=== PATIENT | male | born 1975 | race Caucasian/White ===

== ENCOUNTER 2019-10-16 17:21 | Inpatient (IN) ==
[2019-10-16] MEDS ORDERED: Vancomycin 1,000 MG VIAL IVPB ONE (17:33)
[2019-10-16] MEDS ORDERED: Ampicillin/Sulbactam 3,000 MG in 0.9 % Sodium Chloride 100 ML IVPB ONE (17:33)
[2019-10-16] MEDS ORDERED: Vancomycin 2,000 MG/520 ML IV.SOLN IVPB ONE (18:00)
[2019-10-16 18:07] LABS: Basophils # 0.1 K/mcL (0.0-0.2); Hematocrit 41.5 % (37.5-50.1); Hemoglobin 13.5 g/dL (12.9-16.9); Mean Corpuscular HGB Conc 32.5 g/dL (31.6-35.5); Mean Corpuscular Hemoglobin 27.9 pg (28.0-33.3); Mean Corpuscular Volume 85.7 fL (83.0-100.0); Platelet Count 160 K/mcL (140-400); Red Blood Count 4.84 M/mcL (4.19-5.50); Red Cell Distribution Width 13.7 % (11.5-14.5); White Blood Count 4.8 K/mcL (4.3-11.1)
[2019-10-16] MEDS ORDERED: Ketorolac 30 MG/ML VIAL IVP ONE (18:11)
[2019-10-16 18:26] LABS: Monocytes # 1.1 K/mcL (0.0-1.3); Neutrophils # 2.7 K/mcL (1.6-8.9); Platelet Estimate Normal (Normal)
[2019-10-16 18:29] LABS: BUN/Creatinine Ratio 16 (6-26); Blood Urea Nitrogen 17 mg/dL (6-20); Calcium 9.1 mg/dL (8.6-10.3); Carbon Dioxide 25 mEq/L (23-29); Chloride 102 mEq/L (98-107); Glucose 93 mg/dL (70-105); Osmolality,Calculated 281 (280-300); Potassium 3.9 mEq/L (3.5-5.1); Sodium 135 mEq/L (136-145); eGFR For African Americans > 60 (> 60); eGFR For Non-African Americans > 60 (> 60)
[2019-10-17] MEDS: Ampicillin/Sulbactam 3,000 MG in 0.9 % Sodium Chloride Mini Bag 100 ML IVPB SCH ×5 (00:04→23:37)
[2019-10-17 04:25] LABS: Hematocrit 39.8 % (37.5-50.1); Hemoglobin 13.1 g/dL (12.9-16.9); Mean Corpuscular HGB Conc 32.9 g/dL (31.6-35.5); Mean Corpuscular Hemoglobin 28.4 pg (28.0-33.3); Mean Corpuscular Volume 86.3 fL (83.0-100.0); Platelet Count 123 K/mcL (140-400); Red Blood Count 4.61 M/mcL (4.19-5.50); Red Cell Distribution Width 13.5 % (11.5-14.5); White Blood Count 3.5 K/mcL (4.3-11.1)
[2019-10-17 04:43] LABS: BUN/Creatinine Ratio 18 (6-26); Blood Urea Nitrogen 18 mg/dL (6-20); Calcium 8.1 mg/dL (8.6-10.3); Carbon Dioxide 25 mEq/L (23-29); Chloride 105 mEq/L (98-107); Glucose 99 mg/dL (70-105); Osmolality,Calculated 288 (280-300); Potassium 3.6 mEq/L (3.5-5.1); Sodium 138 mEq/L (136-145); eGFR For African Americans > 60 (> 60); eGFR For Non-African Americans > 60 (> 60)
[2019-10-17 05:28] LABS: Basophils # 0.1 K/mcL (0.0-0.2); Eosinophils # 0.1 K/mcL (0.0-0.6); Lymphocytes # 0.8 K/mcL (0.6-4.6); Monocytes # 0.6 K/mcL (0.0-1.3); Platelet Estimate Normal (Normal); Reactive Lymphocytes Present (Not Present)
[2019-10-17] MEDS ORDERED: Acetaminophen 325 MG TABLET PO ONE (06:36)
[2019-10-17] MEDS ORDERED: Ketorolac 15 MG/ML VIAL IVP PRN (06:37)
[2019-10-17] MEDS: Vancomycin 1,250 MG/262.5 ML IV.SOLN IVPB SCH ×2 (07:32→19:40)
[2019-10-17] MEDS ORDERED: Ketorolac 30 MG/ML VIAL IVP ONE (16:52)
[2019-10-18] MEDS: Ampicillin/Sulbactam 3,000 MG in 0.9 % Sodium Chloride Mini Bag 100 ML IVPB SCH ×3 (05:22→21:45)
[2019-10-18] MEDS ORDERED: Ketorolac 30 MG/ML VIAL IVP PRN (10:42)
[2019-10-18] MEDS ORDERED: D5% in Water 250 ML ONE (18:20)
[2019-10-18] MEDS ORDERED: D5% in Water 1,000 ML IVC ONE (18:25)
[2019-10-18] MEDS ORDERED: D5% in 0.45% NACL 500 ML IVC SCH (18:30)
[2019-10-18] MEDS ORDERED: *HR* Propofol 200 MG/20 ML VIAL IVP ONE ×2 (21:37→23:19)
[2019-10-18] MEDS ORDERED: *HR* FentaNYL (PF) 100 MCG/2 ML VIAL ONE (21:37)
[2019-10-18] MEDS ORDERED: Lidocaine -MPF 2% 2 ML VIAL ONE (22:05)
[2019-10-18] MEDS ORDERED: Ondansetron 4 MG/2 ML VIAL ONE (22:05)
[2019-10-18] MEDS ORDERED: Dexamethasone 4 MG/ML VIAL ONE (22:05)
[2019-10-18] MEDS ORDERED: Lidocaine HCL 4 ML Topical Solution (Laryng-O-Jet Kit Sterile Pak) TP ONE (22:16)
[2019-10-18] MEDS ORDERED: *HR* Rocuronium Bromide 50 MG/5 ML VIAL ONE (22:17)
[2019-10-18] MEDS ORDERED: Ketorolac 30 MG/ML VIAL ONE (23:19)
[2019-10-19] MEDS: Ampicillin/Sulbactam 3,000 MG in 0.9 % Sodium Chloride Mini Bag 100 ML IVPB SCH ×2 (00:51→06:22)
[2019-10-19] MEDS ORDERED: *HR* OxyCODONE Immed Rel 5 MG TABLET PO ONE (01:21)
[2019-10-19] MEDS ORDERED: *HR* Heparin 5,000 UNIT/ML VIAL SQ SCH (06:00)
[2019-10-19 07:53] VITALS: BP 107/94
[2019-10-19] MEDS ORDERED: Vancomycin 1,250 MG/262.5 ML IV.SOLN IVPB SCH (10:00)
[2019-10-19] MEDS ORDERED: Ampicillin/Sulbactam 3,000 MG in 0.9 % Sodium Chloride Mini Bag 100 ML IVPB SCH (12:00)
== END 2019-10-19 10:31 | disposition home or self-care (01) | DRG 580 ==
LOC: EMEROOARM 17:21 → 3ANU 17:21 → SUATTDRO 18:40 → 3ANU 19:36 → 2NENU 10-18 20:56
PROVIDERS: ADMIT Internal Medicine; ATTEND Internal Medicine